=== PATIENT | female | born 1970 | race Caucasian/White ===

== ENCOUNTER → 2017-09-05 | Outpatient (CLI) | payer OTHER | LOC: BMCIMAGING 15:08 | PROVIDERS: ATTEND Obstetrics & Gynecology Gynecology | DX: Z12.31 Encounter for screening mammogram for malignant neoplasm of breast (principal); Z80.3 Family history of malignant neoplasm of breast | CPT/HCPCS: G0202 ==

== ENCOUNTER → 2018-03-14 | Outpatient (CLI) | payer OTHER | LOC: BMCIMAGING 11:41 | PROVIDERS: ATTEND Podiatrist Foot & Ankle Surgery | DX: M20.12 Hallux valgus (acquired), left foot (principal); M19.072 Primary osteoarthritis, left ankle and foot ==

== ENCOUNTER → 2018-04-25 | Outpatient (CLI) | payer OTHER | LOC: BMCIMAGING 13:48 | PROVIDERS: ATTEND Podiatrist Foot & Ankle Surgery | DX: Z47.89 Encounter for other orthopedic aftercare (principal); Z98.890 Other specified postprocedural states ==

== ENCOUNTER → 2018-05-18 | Outpatient (CLI) | payer OTHER | LOC: BMCLAB 08:33 | PROVIDERS: ATTEND Podiatrist Foot & Ankle Surgery | DX: Z98.890 Other specified postprocedural states (principal); Z47.89 Encounter for other orthopedic aftercare ==

== ENCOUNTER → 2018-06-08 | Outpatient (CLI) | payer OTHER | LOC: BMCLAB 09:47 | PROVIDERS: ATTEND Podiatrist Foot & Ankle Surgery | DX: Z09 Encounter for follow-up examination after completed treatment for conditions other than malignant neoplasm (principal) ==

== ENCOUNTER → 2018-07-20 | Outpatient (CLI) | payer OTHER | LOC: BMCIMAGING 15:44 | PROVIDERS: ATTEND Orthopaedic Surgery Hand Surgery | DX: M25.531 Pain in right wrist (principal); R93.6 Abnormal findings on diagnostic imaging of limbs ==

== ENCOUNTER → 2018-09-19 | Outpatient (CLI) | payer OTHER | LOC: BMCIMAGING 12:19 | PROVIDERS: ATTEND Obstetrics & Gynecology Gynecology | DX: Z12.31 Encounter for screening mammogram for malignant neoplasm of breast (principal); Z80.3 Family history of malignant neoplasm of breast ==

== ENCOUNTER → 2018-09-28 | Outpatient (CLI) | payer OTHER | LOC: BMCIMAGING 11:21 | PROVIDERS: ATTEND Obstetrics & Gynecology Gynecology | DX: N63.21 Unspecified lump in the left breast, upper outer quadrant (principal) ==

== ENCOUNTER → 2018-10-09 | Outpatient (CLI) | payer OTHER ==
[~2018-10-09] MED LIST: BUPIVACAINE 0.5% 30 ML SDV ONE; LIDOCAINE 1% 300 MG/30 ML SDV ONE
== END ==
LOC: FIMAGING 07:24
PROVIDERS: ATTEND Obstetrics & Gynecology Gynecology
PROC: 0HBU3ZX Excision of Left Breast, Percutaneous Approach, Diagnostic (ICD-10-PCS; principal; 2018-10-09)
DX: D24.2 Benign neoplasm of left breast (principal)

== ENCOUNTER → 2019-03-26 | Outpatient (CLI) | payer OTHER | LOC: FIMAGING 12:58 ==